=== PATIENT | male | born 1950 | race Caucasian/White ===

== ENCOUNTER → 2018-07-03 | Day surgery (SDC) | payer MEDICARE, BC ==
[~2018-07-03] MED LIST: AMLODIPINE BESYL5 MG PO; FENTANYL CITRATE/PF 100MCG/2 ML INJ ONE; HYDROCHLOROTH12.5 MG PO; LEVOTHYROXINE50 MCG PO; MELOXICAM PO; MIDAZOLAM HCL 2 MG/2 ML VIAL ONE; PROPOFOL IV EMULSION 10 MG/ML 20 ML VIAL ONE
[2018-07-03 14:05] LABS: BASOPHILS # (AUTO) 0.1 (0.0-0.1); BASOPHILS % 0.8 % (0.0-1.0); EOSINOPHILS # (AUTO) 0.1 (0.0-0.4); EOSINOPHILS % 1.4 % (0.0-6.0); HEMATOCRIT 44.8 % (38.2-49.6); HEMOGLOBIN 15.8 g/dL (14.0-18.0); LYMPHOCYTES # (AUTO) 1.8 (1.0-3.2); LYMPHOCYTES % 19.4 % (18.0-39.1); MEAN CORPUSCULAR HEMOGLOBIN 31.5 pg (28-32); MEAN CORPUSCULAR HGB CONC 35.3 g/dL (31-35); MEAN CORPUSCULAR VOLUME 89.2 fL (81-99); MONOCYTES # (AUTO) 0.7 (0.2-0.8); MONOCYTES % 7.2 % (4.4-11.3); NEUTROPHILS # (AUTO) 6.4 (2.1-6.9); NEUTROPHILS % 70.8 % (38.7-80.0); PLATELET COUNT 281 x10e3/uL (140-360); RED BLOOD COUNT 5.02 x10e6/uL (4.3-5.7); RED CELL DISTRIBUTION WIDTH 13.4 % (11.7-14.4)
[2018-07-03 16:20] VITALS: BP 122/81
--- NOTE | 2018-07-03 18:06 | Operative Report ---
DATE OF PROCEDURE: July 03, 2018 PROCEDURE PERFORMED: Colonoscopy. PREOP DIAGNOSIS: History of colon polyps. POSTOP DIAGNOSIS: History of colon polyps, none found and diverticulosis present. PREOP MEDICATION: General anesthesia. PROCEDURE: Using the [employer] video colonoscope, this was inserted into the patient's rectum and advanced without difficulty to the level of the cecum. The colon was studied from that level back down to the rectum. No polypoid lesions, tumor masses or inflammatory changes were found. No new colon polyps were found. Scattered diverticula were present in the sigmoid and descending colon. The colonoscope was withdrawn from the patient's rectum, and the procedure was ended. In conclusion, we have findings of diverticulosis and history of colon polyps, none found at the present time. Job#: [id number]
== END | disposition home or self-care (01) ==
LOC: OR 12:43 → EDSEX 15:30
PROVIDERS: ATTEND Internal Medicine Gastroenterology
DX: Z12.11 Encounter for screening for malignant neoplasm of colon (principal); Z86.010 Personal history of colon polyps; K57.30 Diverticulosis of large intestine without perforation or abscess without bleeding; Z80.0 Family history of malignant neoplasm of digestive organs; I10 Essential (primary) hypertension
CPT/HCPCS: 36415; 85025; 93005; G0105; J2250; J2704; 45378